=== PATIENT | male | born 1940 | race Caucasian/White ===

== ENCOUNTER 2020-11-06 10:12 | Emergency (ER) | payer MEDICARE, OTHER ==
[~2020-11-06] VITALS: Ht 180.3 cm; Wt 74.0 kg
[~2020-11-06 10:12] MED LIST: ASPI81TA45 PO; FINA5TAB PO; TAMS-11 PO
--- NOTE | 2020-11-06 10:20 | NUR ---
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
--- NOTE | 2020-11-06 10:45 | NUR ---
PT BIB VIA POV. PER PT HE HAS BEEN "ACHING ALL OVER X2 DAYS" AND "COUGHING, BUT CAN'T CLEAR THROAT". PT ALSO REPORTS STERNAL CP X2 DAYS. PT HAD J&J COVID VACCINE IN SEPTEMBER. PT RESTING IN [facility], MONITORING IN PLACE, Y[facility] AT THIS TIME, [facility].
[2020-11-06] MEDS ORDERED: ALBUTEROL SULFATE 2.5 MG/3 ML NPPB ONE (11:00)
[2020-11-06 11:26] LABS: BASOPHILS % (AUTO) 0 % (0-1); EOSINOPHILS % (AUTO) 0 % (1-7); LYMPHOCYTES % (AUTO) 9 % (22-44); MEAN CORPUSCULAR HEMOGLOBIN 29.8 pg (27.5-34.5); MEAN CORPUSCULAR HGB CONC 32.9 g/dL (33.2-36.2); MEAN PLATELET VOLUME 6.9 fL (7.4-10.4); MONOCYTES % (AUTO) 10 % (2-9); NEUTROPHILS % (AUTO) 80 % (42-75); PLATELET COUNT 254 x10^3/uL (130-400); RED BLOOD COUNT 4.72 x10^6/uL (4.38-5.82); RED CELL DISTRIBUTION WIDTH 16.1 % (9.4-14.8)
[2020-11-06 11:36] LABS: ALBUMIN 1.5 g/dL (3.4-5.0); ANION GAP 4 mmol/L (5-15); CALCIUM 8.3 mg/dL (8.5-10.1); CHLORIDE 104 mmol/L (98-107); CREATININE 1.28 mg/dL (0.7-1.3)
[2020-11-06] MEDS ORDERED: ALBUTEROL/IPRATROPIUM 2.5MG/0.5MG, 3 ML ONE (11:49)
[2020-11-06] MEDS ORDERED: ALBUTEROL SULFATE 2.5 MG/3 ML ONE (11:54)
[2020-11-06] MEDS ORDERED: DOXYCYCLINE 100MG TABLET ONE (12:41)
[2020-11-06 12:52] VITALS: BP 139/65
[2020-11-06] MEDS ORDERED: DOXYCYCLINE 100MG TABLET PO ONE (13:00)
== END 2020-11-06 12:55 | disposition home or self-care (01) ==
LOC: ED 12:45
DX: J18.9 Pneumonia, unspecified organism (principal); I10 Essential (primary) hypertension; R94.31 Abnormal electrocardiogram [ECG] [EKG]; I25.2 Old myocardial infarction
CPT/HCPCS: 36415; 71046; 80048; 82040; 85025; 93005; 94640; 99285; J7613